=== PATIENT | female | born 1990 | race Caucasian/White ===

== ENCOUNTER → 2016-07-13 | Outpatient (CLI) | payer OTHER ==
[~2016-07-13] MED LIST: NO MEDICATIONS
== END | disposition home or self-care (01) ==
LOC: CBAR 13:23
DX: Z01.812 Encounter for preprocedural laboratory examination (principal); E66.01 Morbid (severe) obesity due to excess calories
CPT/HCPCS: 36415; 84443; 86677; G0463

== ENCOUNTER → 2016-08-11 | Outpatient (CLI) | payer OTHER ==
--- NOTE | ~2016-08-11 | CR97 ---
[facility] A Service of [facility] & [facility] RADIOLOGY TEXT RESULTS PATIENT: DAVID CATALAN LOCATION: [facility] : 90 UNIT #: [id number] AGE: [address]: Humphrey Montiel MD SEX: F ORDER DR: [id number] [facility] [address] [place], [place] [address] [id number] O MR#: [id number] Acc #: [id number] NAME: DAVID CATALAN : 1990 SEX: F STUDY DATE/TIME: 08/11/2016 7:53 UNIT: [facility] ROOM: STUDY DESCRIPTION: CR Esophagram Attending Physician: Humphrey Montiel M.D. Referring Physician: Humphrey Montiel M.D. Ordering Physician: Humphrey Montiel M.D. Primary Care Physician: Isela Arriola A.P.R.N. MEDICAL IMAGING REPORT This report is preliminary unless electronic signature is present EXAM Barium esophagram HISTORY Preop bariatric surgery. Lap-Band. FINDINGS Under fluoroscopic control, barium was administered orally. Swallowing was normal. Esophagus was normal in course, caliber, mucosal pattern and distensibility. CONCLUSION Normal Dictated by... Humphrey Mistry M.D. THIS IS AN ELECTRONICALLY VERIFIED REPORT Humphrey Mistry M.D. at 08/14/2016 5:12 PM JENNA/yara TD: 08/11/2016 12:53 JOB #: [id number] MEDICAL IMAGING REPORT Page 1 of 1 COPY
--- NOTE | ~2016-08-11 | CR63 ---
[facility] A Service of [facility] & [facility] RADIOLOGY TEXT RESULTS PATIENT: DAVID CATALAN LOCATION: [facility] : 90 UNIT #: [id number] AGE: [address]: Humphrey Montiel MD SEX: F ORDER DR: [id number] [facility] [address] [place], [place] [address] [id number] O MR#: [id number] Acc #: [id number] NAME: DAVID CATALAN : 1990 SEX: F STUDY DATE/TIME: 08/11/2016 7:44 UNIT: [facility] ROOM: STUDY DESCRIPTION: CR Chest 2 View Attending Physician: Humphrey Montiel M.D. Referring Physician: Humphrey Montiel M.D. Ordering Physician: Humphrey Monteil M.D. Primary Care Physician: Isela Arriola A.P.R.N. MEDICAL IMAGING REPORT This report is preliminary unless electronic signature is present EXAM Chest 08/11/2016 HISTORY 26-year-old female preop clearance for laparoscopic adjustable gastric band placement and possible paraesophageal hiatal hernia. COMPARISON None. FINDINGS Two-view chest demonstrates mild cardiomegaly. Hilar structures are preserved. Lungs are expanded and clear. Large body habitus noted. IMPRESSION No acute chest finding. Mild cardiomegaly with a large body habitus. Dictated by... Bryson James M.D. THIS IS AN ELECTRONICALLY VERIFIED REPORT Bryson James M.D. at 08/11/2016 2:19 PM BELEN/deric TD: 08/11/2016 12:01 JOB #: [id number] MEDICAL IMAGING REPORT Page 1 of 1 COPY
--- NOTE | ~2016-08-11 | EKG ---
PATIENT: DAVID CATALAN UNIT #: [id number] Ventricular Rate: 85 BPM Atrial Rate: 85 BPM P-R Interval: 140 ms QRS Duration: 94 ms Q-T Interval: 390 ms QTC Calculation(Bezet): 464 ms P [place]: 25 degrees Calculated R [place]: 29 degrees Calculated T [place]: 30 degrees Diagnosis Line: Normal sinus rhythm Diagnosis Line: Low voltage QRS Diagnosis Line: Borderline ECG Diagnosis Line: No previous ECGs available Diagnosis Line: Confirmed by BROCK BARRAZA MD ([id number]) on Diagnosis Line: 08/11/2016 4:17:23 PM INTERPRETING MD: MILDRED
[2016-08-11 08:59] LABS: HEMATOCRIT 37.9 % (35.0-45.0); HEMOGLOBIN 12.6 gm/dL (12.0-16.0); MEAN CELL VOLUME 80.2 FL (83-96); MEAN CORPUSCULAR HEMOGLOBIN 26.7 PG (28-34); MEAN CORPUSCULAR HGB CONC 33.3 g/dL (30-36); MEAN PLATELET VOLUME 9.4 FL (6.5-11.5); RED BLOOD COUNT 4.72 X10e (3.90-5.30); RED CELL DISTRIBUTION WIDTH 14.9 % (11.0-15.5)
[2016-08-11 10:04] LABS: ALBUMIN SERUM 3.8 g/dL (3.5-5.0); BILIRUBIN,TOTAL 1.1 mg/dL (0.2-2.0); BUN/CREATININE RATIO 14.28; CALCIUM SERUM 8.6 mg/dL (8.4-10.2); CREATININE SERUM 0.7 mg/dL (0.6-1.4); GLOM FILT RATE Estimated 119.6 mL/min (>60); POTASSIUM 3.9 mmol/L (3.5-5.1); PROTEIN TOTAL SERUM 6.4 g/dL (6.0-8.3)
== END | disposition home or self-care (01) ==
LOC: CRAD 07:27 → CAMB 09:30
PROVIDERS: Surgery
DX: Z01.818 Encounter for other preprocedural examination (principal)
CPT/HCPCS: 36415; 71020; 74220; 80053; 80061; 84443; 85027; 93005

== ENCOUNTER → 2016-08-23 | Day surgery (SDC) | payer OTHER ==
--- NOTE | ~2016-08-23 | CR7 ---
[facility] A Service of [facility] & [facility] RADIOLOGY TEXT RESULTS PATIENT: DAVID CATALAN LOCATION: [facility] : 90 UNIT #: [id number] AGE: [address]: Humphrey Mnotiel MD SEX: F ORDER DR: [id number] [facility] [address] [place], [place] [address] [id number] O MR#: [id number] Acc #: [id number] NAME: DAVID CATALAN : 1990 SEX: F STUDY DATE/TIME: 08/23/2016 11:39 UNIT: [facility] ROOM: STUDY DESCRIPTION: CR Abdomen Single AP View Attending Physician: Humphrey Montiel M.D. Ordering Physician: Humphrey Montiel M.D. Primary Care Physician: Isela Arriola A.P.R.N. MEDICAL IMAGING REPORT This report is preliminary unless electronic signature is present EXAM Supine radiograph of the abdomen, 08/23/2016 HISTORY Postop Lap-Band. PACU front. FINDINGS AP radiograph of the abdomen presented. Lap-Band device in place. Band component at the gastroesophageal junction level based on prior esophagram 08/11/2016. Band component 61 degrees from vertical. Catheter component radiographically intact. Port component implanted over the low left hemiabdomen. Bowel gas pattern normal. Surgical clips from prior cholecystectomy. Lung bases clear. No free air. Bony structures unremarkable. Dictated by... Humphrey Martinez M.D. THIS IS AN ELECTRONICALLY VERIFIED REPORT Humphrey Martinez M.D. at 08/24/2016 6:42 PM Tiny TD: 08/23/2016 14:19 JOB #: [id number] MEDICAL IMAGING REPORT Page 1 of 1 COPY
--- NOTE | ~2016-08-23 | OR ---
Unit #: [id number] #: [id number] Patient: DAVID CATALAN [id number] [address] [address] [id number] O MR#: [id number] NAME: DAVID CATALAN ROOM: Date of Procedure: 08/23/2016 Admission Date: 08/23/2016 Surgeon: Humphrey Montiel M.D. : 1990 Attending Physician: Humphrey Montiel M.D. Primary Care Physician: Isela Arriola A.P.R.N. OPERATIVE REPORT PREOPERATIVE DIAGNOSIS Chronic morbid obesity, body mass index of 58. POSTOPERATIVE DIAGNOSIS 1. Chronic morbid obesity, body mass index of 58. 2. Paraesophageal hiatal hernia. PROCEDURES PERFORMED 1. Laparoscopic adjustable gastric band. 2. Laparoscopic paraesophageal hiatal hernia repair. MACHINE FILLER Irwin Schmitt M.D ANESTHESIA General endotracheal anesthesia. ESTIMATED BLOOD LOSS Minimal. IV FLUIDS 800 crystalloid. COMPLICATIONS None. INDICATIONS FOR PROCEDURE The patient is a 26-year-old with chronic morbid obesity. DESCRIPTION OF PROCEDURE The patient was taken to the operating room and placed in supine position. General anesthesia was induced. The abdomen was prepped and draped. A 3-cm incision was then made left of the midline. A 10-mm Visiport was then placed intraabdominal under direct vision. The abdomen was insufflated to 15 mmHg with CO2. The patient was then placed in a steep reversed Trendelenburg. General inspection of the abdomen revealed what appeared to be a paraesophageal hernia. This was identified with a defect at the diaphragm using anterior palpation with the instrument. We then made a small incision in the subxiphoid region. A Dominga liver retractor was then placed intraabdominal and used to retract the left lobe of the liver upward to further expose the paraesophageal hernia and GE junction. I then placed a 5-mm port in the right upper quadrant, a 10-mm Unit #: [id number] #: [id number] Patient: DAVID CATALAN port in the left upper quadrant, and another 5-mm port in the left lower quadrant. The stomach was retracted medial and downward. Upon retracting the stomach, we took down the paraesophageal ligament, exposing the right and left joann at the paraesophageal hernia. Any hernia sac was reduced. We then repaired the paraesophageal hernia using interrupted #0 Ethibond sutures in a [id number] type fashion. This formed a snug repair to the anterior esophagus. We then retracted the stomach medially and further exposed the angle of His using Bovie electrocautery. The stomach was then retracted laterally. We then took down the hepatogastric ligament with Bovie electrocautery. This exposed the right joann. Using blunt dissection, I created a retrogastric tunnel from this point to the angle of His. The band was then placed intraabdominal through the 10-mm port site. This was then brought through the retrogastric tunnel in a pars flaccida technique. The band was then closed anteriorly to form a 20-mL to 25-mL anterior gastric pouch. The fundus was then secured to the anterior pouch to prevent movement around the stomach using two interrupted #0 Ethibond sutures. A third suture was then used as a gathering stitch from the lesser curve to the anterior stomach, gathering and imbricating the remaining fundus of the stomach. The tubing was then brought out through the midline 10-mm port site. All ports and the Dominga liver retractor were removed under direct vision with no evidence of abdominal hemorrhage. A polypropylene mesh was then secured to the posterior face of the laparoscopic band port. This was secured using #0 Ethibond suture. This was then cut to shape. The port was then connected to the tubing and placed into a subcutaneous pocket just anterior to the rectus sheath. Its position was then confirmed. All tubing was then placed intraabdominal. The wounds were then closed with interrupted 4-0 Vicryl. The patient tolerated the procedure well and was sent to the recovery room in good condition. Dictated by... Mandi Wyatt/sandhya TD: 08/23/2016 18:31 JOB #: [id number] OPERATIVE REPORT Page 1 of 1 X Humphrey Montiel MD PROCEDURE OPERATIVE NOTE
== END | disposition home or self-care (01) ==
LOC: CSUR 07:23
DX: E66.01 Morbid (severe) obesity due to excess calories (principal); K44.9 Diaphragmatic hernia without obstruction or gangrene; Z68.43 Body mass index [BMI] 50.0-59.9, adult; Z87.891 Personal history of nicotine dependence; Z90.49 Acquired absence of other specified parts of digestive tract
CPT/HCPCS: 74000; 84703; C1781; J0330; J0690; J1650; J1885; J2250; J2405; J2710; J3010; L8699